=== PATIENT | male | born 1985 | race African-American/Black ===

== ENCOUNTER 2021-05-30 13:36 | Emergency (ER) | payer SELFPAY ==
[2021-05-30 15:31] LABS: Absolute Lymphocytes (CBC) 2.4 K/uL (0.7-4.9); Basophils % 0.5 % (0-1.3); Hematocrit 43.4 % (39.6-49.0); MPV 9.7 fL (7.6-11.3); Protime INR 0.97; RBC Red Blood Cell Count 4.72 M/uL (4.33-5.43)
[2021-05-30 15:49] LABS: ALT/SGPT 45 U/L (12-78); AST/SGOT 25 U/L (15-37); Albumin 4.1 g/dL (3.4-5.0); Alkaline Phosphatase 111 U/L (45-117); BUN Blood Urea Nitrogen 12 mg/dL (7-18); Bicarbonate 29 mmol/L (21-32); Bilirubin Direct < 0.1 mg/dL (0-0.2); Bilirubin Total 0.3 mg/dL (0.2-1.0); Glucose Level 109 mg/dL (74-106); Magnesium 2.2 mg/dL (1.8-2.4); NT PRO-BNP 16 pg/mL (<125); Potassium 4.2 mmol/L (3.5-5.1); Protein, Total 8.1 g/dL (6.4-8.2); Sodium Level 138 mmol/L (136-145); Troponin (Emerg Dept Use Only) < 0.02 ng/mL (0.0-0.045)
--- NOTE | 2021-05-30 16:07 | EDPHYS ---
Physician Documentation [facility] Name: Obi Shi Age: 35 yrs Sex: Male : 1985 Arrival Date: 05/30/2021 Time: 13:42 Bed 23 Private MD: ED Physician Shakeel Francis HPI: 05/30 17:05 This 35 yrs old Black Male presents to ER via Ambulatory with complaints of Chest Pain. kdr 17:05 The patient or guardian reports chest pain that is located primarily in the substernal kdr area, anterior chest wall. The pain does not radiate. Associated signs and symptoms: Pertinent positives: None. Pertinent negatives: abdominal pain, diaphoresis, headache, lightheadedness, nausea, near syncope, palpitations, shortness of breath. The chest pain is described as aching, dull. Duration: The patient or guardian reports multiple episodes, that are intermittent, that wax and wane, with no pattern. Modifying factors: The symptoms are alleviated by nothing. the symptoms are aggravated by nothing. Severity of pain: At its worst the pain was mild in the emergency department the pain is unchanged. The patient has not experienced similar symptoms in the past. The patient has not recently seen a physician. Historical: - Allergies: 13:50 No Known Allergies; ll1 - PMHx: 13:50 None; ll1 - PSHx: 13:50 None; ll1 - Immunization history:: Flu vaccine is not up to date. - Social history:: Smoking status: Reported history of juuling and/or vaping. Patient denies any tobacco usage or history of. ROS: 17:05 Constitutional: Negative for fever, chills, and weight loss, Eyes: Negative for injury, kdr pain, redness, and discharge, ENT: Negative for injury, pain, and discharge, Neck: Negative for injury, pain, and swelling, Respiratory: Negative for shortness of breath, cough, wheezing, and pleuritic chest pain, Abdomen/GI: Negative for abdominal pain, nausea, vomiting, diarrhea, and constipation, Back: Negative for injury and pain, : Negative for injury, bleeding, discharge, and swelling, MS/Extremity: Negative for injury and deformity, Skin: Negative for injury, rash, and discoloration, Neuro: Negative for headache, weakness, numbness, tingling, and seizure activity. Psych: Negative for depression, anxiety, suicide ideation, homicidal ideation, and hallucinations, Allergy/Immunology: Negative for hives, rash, and allergies, Endocrine: Negative for neck swelling, polydipsia, polyuria, polyphagia, and marked weight changes, Hematologic/Lymphatic: Negative for swollen nodes, abnormal bleeding, and unusual bruising. 17:05 Cardiovascular: Positive for chest pain, Negative for edema, orthopnea, palpitations, paroxysmal nocturnal dyspnea, acute changes. Exam: 15:04 ECG was reviewed by the Attending Physician. kdr 17:05 Constitutional: This is a well developed, well nourished patient who is awake, alert, kdr and in no acute distress. Head/Face: Normocephalic, atraumatic. Eyes: Pupils equal round and reactive to light, extra-ocular motions intact. Lids and lashes normal. Conjunctiva and sclera are non-icteric and not injected. Cornea within normal limits. Periorbital areas with no swelling, redness, or edema. Neck: Trachea midline, no thyromegaly or masses palpated, and no cervical lymphadenopathy. Supple, full range of motion without nuchal rigidity, or vertebral point tenderness. No Meningismus. Chest/axilla: Normal chest wall appearance and motion. Nontender with no deformity. No lesions are appreciated. Cardiovascular: Regular rate and rhythm with a normal S1 and S2. No gallops, murmurs, or rubs. Normal PMI, no JVD. No pulse deficits. Respiratory: Lungs have equal breath sounds bilaterally, clear to auscultation and percussion. No rales, rhonchi or wheezes noted. No increased work of breathing, no retractions or nasal flaring. Abdomen/GI: Soft, non-tender, with normal bowel sounds. No distension or tympany. No guarding or rebound. No evidence of tenderness throughout. Back: No spinal tenderness. No costovertebral tenderness. Full range of motion. Skin: Warm, dry with normal turgor. Normal color with no rashes, no lesions, and no evidence of cellulitis. MS/ Extremity: Pulses equal, no cyanosis. Neurovascular intact. Full, normal range of motion. Neuro: Awake and alert, GCS 15, oriented to person, place, time, and situation. Cranial nerves II-XII grossly intact. Motor strength 5/5 in all extremities. Sensory grossly intact. Cerebellar exam normal. Normal gait. Psych: Awake, alert, with orientation to person, place and time. Behavior, mood, and affect are within normal limits. Vital Signs: 13:50 Pulse 70; Resp 18; Temp 97.4; Pulse Ox 99% ; Weight 117.93 kg; Height 5 ft. 10 in. ll1 (177.80 cm); Pain 2/10; 13:50 BP 148 / 72; ll1 15:31 BP 124 / 73; Pulse 68; Resp 18 S; Pulse Ox 98% on R/A; ca1 16:32 BP 111 / 66; Pulse 67; Resp 16 S; Pulse Ox 100% on R/A; ca1 13:50 Body Mass Index 37.31 (117.93 kg, 177.80 cm) ll1 MDM: 16:06 Patient medically screened. kdr 17:05 Data reviewed: vital signs, nurses notes, lab test result(s), EKG, radiologic studies. kdr Counseling: I had a detailed discussion with the patient and/or guardian regarding: the historical points, exam findings, and any diagnostic results supporting the discharge/admit diagnosis, lab results, radiology results, the need for outpatient follow up. 05/30 15:04 Order name: Basic Metabolic Panel; Complete Time: 16:04 [facility] 05/30 15:04 Order name: CBC with Diff; Complete Time: 16:04 [facility] 05/30 15:04 Order name: LFT's; Complete Time: 16:04 [facility] 05/30 15:04 Order name: Magnesium; Complete Time: 16:04 [facility] 05/30 15:04 Order name: NT PRO-BNP; Complete Time: 16:04 [facility] 05/30 15:04 Order name: PT-INR; Complete Time: 16:04 [facility] 05/30 13:59 Order name: EKG; Complete Time: 14:00 1 05/30 13:59 Order name: EKG - Nurse/Tech; Complete Time: 13:59 [facility] 05/30 15:04 Order name: Troponin (emerg Dept Use Only); Complete Time: 16:04 [facility] 05/30 15:04 Order name: XRAY Chest (1 view) [facility] 05/30 15:04 Order name: Cardiac monitoring; Complete Time: 15:24 [facility] 05/30 15:04 Order name: IV Saline Lock; Complete Time: 15:24 [facility] 05/30 15:04 Order name: Labs collected and sent; Complete Time: 15:24 kdr 05/30 15:04 Order name: O2 Per Protocol; Complete Time: 15:24 kdr 05/30 15:04 Order name: O2 Sat Monitoring; Complete Time: 15:24 kdr EC:04 Rate is 67 beats/min. Rhythm is regular, Sinus Rhythm with No ectopy. QRS [place] is kdr Normal. SC interval is normal. QRS interval is normal. Clinical impression: NSR w/ Non-specific ST/T Changes. Administered Medications: No medications were administered Disposition Summary: 05/30/21 16:06 Discharge Ordered Location: Home kdr Problem: an acute exacerbation kdr Symptoms: are resolved kdr Condition: Stable kdr Diagnosis - Palpitations kdr - Chest pain, unspecified kdr Followup: kdr - With: Private Physician - When: 2 - 3 days - Reason: If symptoms return, Further diagnostic work-up, Recheck today's complaints, Continuance of care, Re-evaluation by your physician Discharge Instructions: - Discharge Summary Sheet kdr - Nonspecific Chest Pain, Adult, [id number] kdr - Palpitations, [id number] kdr Forms: - Medication Reconciliation Form kdr - Thank You Letter kdr Signatures: Dispatcher [employer] Shakeel Zamora MD MD kdr Abel Russell RN RN ll1
--- NOTE | 2021-05-30 16:07 | ER ---
Nurse's Notes [facility] Name: Obi Shi Age: 35 yrs Sex: Male : 1985 Arrival Date: 05/30/2021 Time: 13:42 Bed 23 Private MD: Diagnosis: Palpitations;Chest pain, unspecified Presentation: 05/30 13:50 Chief complaint: Patient states: Chest pain off/on for 2 days. Slightly jittery, feels ll1 like it may be anxiety. Coronavirus screen: Client denies travel out of the [place] in the last 14 days. At this time, the client does not indicate any symptoms associated with coronavirus-19. Ebola Screen: Patient denies travel to an Ebola-affected area in the 21 days before illness onset. Initial Sepsis Screen: Does the patient meet any 2 criteria? No. Patient's initial sepsis screen is negative. Does the patient have a suspected source of infection? No. Patient's initial sepsis screen is negative. Risk Assessment: Do you want to hurt yourself or someone else? Patient reports no desire to harm self or others. Onset of symptoms was May 29, 2021. 13:50 Method Of Arrival: Ambulatory ll1 13:50 Acuity: GILMAR 3 ll1 Historical: - Allergies: 13:50 No Known Allergies; ll1 - PMHx: 13:50 None; ll1 - PSHx: 13:50 None; ll1 - Immunization history:: Flu vaccine is not up to date. - Social history:: Smoking status: Reported history of juuling and/or vaping. Patient denies any tobacco usage or history of. Screenin:00 Abuse screen: Denies threats or abuse. Denies injuries from another. Nutritional ca1 screening: No deficits noted. Tuberculosis screening: No symptoms or risk factors identified. Fall Risk IV access (20 points). Assessment: 15:00 General: Appears in no apparent distress. comfortable, Behavior is calm, cooperative, ca1 appropriate for age. Pain: Complains of pain in chest Pain radiates to right arm and left arm Pain currently is 0 out of 10 on a pain scale. at worst was 3 out of 10 on a pain scale. Quality of pain is described as sharp, Pain began 2-3 days ago. Is intermittent, Aggravated by repositioning. Neuro: Level of Consciousness is awake, alert, obeys commands, Oriented to person, place, time, situation. Cardiovascular: Heart tones S1 S2 present Capillary refill < 3 seconds Patient's skin is warm and dry. Rhythm is sinus rhythm. Respiratory: Airway is patent Respiratory effort is even, unlabored, Respiratory pattern is regular, symmetrical, Breath sounds are clear bilaterally. GI: Abdomen is round non-distended, Bowel sounds present X 4 quads. Abd is soft and non tender X 4 quads. : No signs and/or symptoms were reported regarding the genitourinary system. EENT: No signs and/or symptoms were reported regarding the EENT system. Derm: Skin is intact, is healthy with good turgor, Skin is pink, warm \T\ dry. Musculoskeletal: Circulation, motion, and sensation intact. Capillary refill < 3 seconds. 16:32 Reassessment: Patient appears in no apparent distress at this time. Patient and/or ca1 family updated on plan of care and expected duration. Pain level reassessed. Patient is alert, oriented x 3, equal unlabored respirations, skin warm/dry/pink. Vital Signs: 13:50 Pulse 70; Resp 18; Temp 97.4; Pulse Ox 99% ; Weight 117.93 kg; Height 5 ft. 10 in. ll1 (177.80 cm); Pain 2/10; 13:50 BP 148 / 72; ll1 15:31 BP 124 / 73; Pulse 68; Resp 18 S; Pulse Ox 98% on R/A; ca1 16:32 BP 111 / 66; Pulse 67; Resp 16 S; Pulse Ox 100% on R/A; ca1 13:50 Body Mass Index 37.31 (117.93 kg, 177.80 cm) ll1 ED Course: 13:42 Patient arrived in ED. ds1 13:49 Arm band placed on. ll1 13:52 Triage completed. ll1 13:59 EKG completed in triage. Results shown to MD. ll1 14:34 Shakeel Francis MD is Attending Physician. kdr 14:53 Patient placed in an exam room, on a stretcher. ll1 15:00 Patient has correct armband on for positive identification. Placed in gown. Bed in low ca1 position. Call light in reach. Side rails up X2. monitoring coordinator on. Pulse ox on. NIBP on. Warm blanket given. 15:10 Haven Contreras, RN is Primary Nurse. ca1 15:23 Assist provider with bone marrow aspiration. Initial lab(s) drawn, by me, sent to lab. ca1 Inserted saline lock: 20 gauge in right antecubital area, using aseptic technique. Blood collected. Patient maintains SpO2 saturation greater than 95% on room air. 15:33 XRAY Chest (1 view) In Process Unspecified. EDMS 16:41 IV discontinued, intact, bleeding controlled, No redness/swelling at site. Pressure ca1 dressing applied. Administered Medications: No medications were administered Outcome: 16:06 Discharge ordered by . kdr 16:41 Discharged to home ambulatory. ca1 16:41 Condition: stable 16:41 Discharge instructions given to patient, Instructed on discharge instructions, follow up and referral plans. Demonstrated understanding of instructions, follow-up care. 16:42 Patient left the ED. ca1 Signatures: Dispatcher [employer] EDPA Shakeel Francis MD MD kdr Sanford, Demi ds1 Haven Contreras RN RN ca1 Abel Russell RN RN ll1
--- NOTE | 2021-05-30 16:13 | RAD REPORT ---
EXAM DESCRIPTION: Jose Single View05/30/2021 3:34 pm CLINICAL HISTORY: Chest pain COMPARISON: 2008 FINDINGS: The lungs appear clear of acute infiltrate. The heart is normal size IMPRESSION: No acute abnormalities displayed
[2021-05-30 16:50] VITALS: TEMP 97.4
[2021-05-30 16:53] VITALS: BP 111/66; O2SAT 100
--- NOTE | 2021-05-31 08:05 | EKG ---
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
== END 2021-05-30 16:42 | disposition home or self-care (01) ==
LOC: ER 13:36
DX: R00.2 Palpitations (principal)
CPT/HCPCS: 36415; 71045; 80048; 80076; 83735; 83880; 84484; 85025; 85610; 93005; 99285

== ENCOUNTER 2022-05-15 16:02 | Emergency (ER) | payer SELFPAY ==
--- NOTE | 2022-05-15 18:20 | ER ---
Nurse's Notes [facility] Name: Obi Shi Age: 36 yrs Sex: Male : 1985 Arrival Date: 05/15/2022 Time: 16:05 Bed Waiting Private MD: Diagnosis: SARS-associated coronavirus as the cause of diseases classified elsewhere Presentation: 05/15 16:14 Chief complaint: Patient states: nasal congestion, dry cough and runny nose x 3 days. ss Pt states, "with flu and all that my job wants me to get cleared to go back to work." Denies fever. Coronavirus screen: Client denies travel out of the [place] in the last 14 days. Ebola Screen: Patient denies exposure to infectious person. Patient denies travel to an Ebola-affected area in the 21 days before illness onset. Initial Sepsis Screen: Does the patient meet any 2 criteria? No. Patient's initial sepsis screen is negative. Does the patient have a suspected source of infection? No. Patient's initial sepsis screen is negative. Risk Assessment: Do you want to hurt yourself or someone else? Patient reports no desire to harm self or others. Onset of symptoms was May 11, 2022. 16:14 Method Of Arrival: Ambulatory ss 16:14 Acuity: GILMAR 4 ss Historical: - Allergies: 16:15 No Known Allergies; ss - Home Meds: 16:15 None [Active]; ss - PMHx: 16:15 None; ss - PSHx: 16:15 None; ss - Immunization history:: Client reports receiving the 2nd dose of the Covid vaccine. - Social history:: Smoking status: Reported history of juuling and/or vaping. Screenin:13 Abuse screen: Denies threats or abuse. Denies injuries from another. Nutritional ss screening: No deficits noted. Tuberculosis screening: Never had TB. Fall Risk None identified. Assessment: 18:13 General: Appears in no apparent distress. comfortable, Behavior is calm, cooperative, ss Reports feeling ill for 2-3 days, Denies fever, fatigue, chills. Pain: Denies pain. Neuro: Level of Consciousness is awake, alert, obeys commands. Respiratory: Respiratory effort is even, unlabored, Respiratory pattern is regular, symmetrical. GI: No signs and/or symptoms were reported involving the gastrointestinal system. Derm: Skin is intact, is healthy with good turgor, Skin is dry, Skin is pink, warm \\T\\ dry. normal. Vital Signs: 16:14 BP 151 / 79; Pulse 68; Resp 16; Temp 98.5(TE); Pulse Ox 98% on R/A; Weight 122.47 kg; ss Height 5 ft. 10 in. (177.80 cm); Pain 0/10; 16:14 Body Mass Index 38.74 (122.47 kg, 177.80 cm) ss ED Course: 16:05 Patient arrived in ED. mr 16:15 Triage completed. ss 16:15 Arm band placed on left wrist. ss 16:23 Brooks Roche PA is PHCP. cp 16:23 Kush Oconnor MD is Attending Physician. cp 18:13 Nidhi Morejon, RN is Primary Nurse. ss 18:13 Patient has correct armband on for positive identification. Bed in low position. Call ss light in reach. 18:13 No provider procedures requiring assistance completed. Patient did not have IV access ss during this emergency room visit. Administered Medications: No medications were administered Medication: 18:13 VIS not applicable for this client. ss Outcome: 18:19 Discharge ordered by . cp 18:24 Discharged to home ambulatory. ss 18:24 Condition: good 18:24 Discharge instructions given to patient, Instructed on discharge instructions, follow up and referral plans. Demonstrated understanding of instructions, follow-up care, Prescriptions given X 18:25 Patient left the ED. ss Signatures: Kasey Martini mr Nidhi Morejon, RN RN Brooks Roche PA PA cp
--- NOTE | 2022-05-15 18:20 | EDPHYS ---
Physician Documentation [facility] Name: Obi Shi Age: 36 yrs Sex: Male : 1985 Arrival Date: 05/15/2022 Time: 16:05 Bed Waiting Private MD: ED Physician Kush Oconnor HPI: 05/15 18:00 This 36 yrs old Black Male presents to ER via Ambulatory with complaints of Sinus cp Congestion. 18:00 The patient or guardian reports cough, that is intermittent, runny nose. cp 18:00 Onset: The symptoms/episode began/occurred 3-4 days ago. Severity of symptoms: in the emergency department the symptoms have improved, moderately. Associated signs and symptoms: Pertinent positives: rhinorrhea, Pertinent negatives: diarrhea, ear ache, fever, sore throat, vomiting. Patient reports employer requesting COVID-19 test. Historical: - Allergies: 16:15 No Known Allergies; ss - Home Meds: 16:15 None [Active]; ss - PMHx: 16:15 None; ss - PSHx: 16:15 None; ss - Immunization history:: Client reports receiving the 2nd dose of the Covid vaccine. - Social history:: Smoking status: Reported history of juuling and/or vaping. ROS: 18:05 Constitutional: Negative for body aches, fever, poor PO intake. cp 18:05 Eyes: Negative for injury, pain, redness, and discharge. cp 18:05 ENT: Positive for rhinorrhea, Negative for drainage from ear(s), ear pain, sore throat, difficulty swallowing, difficulty handling secretions. 18:05 Respiratory: Positive for cough, Negative for shortness of breath, wheezing. 18:05 Abdomen/GI: Negative for abdominal pain, vomiting, diarrhea, constipation. 18:05 Neuro: Negative for altered mental status, headache, weakness. 18:05 All other systems are negative. Exam: 18:10 Constitutional: The patient appears in no acute distress, alert, awake, non-toxic, well cp developed, well nourished, obese. 18:10 Head/Face: Normocephalic, atraumatic. cp 18:10 Eyes: Periorbital structures: appear normal, Conjunctiva: normal, no exudate, no injection, Sclera: no appreciated abnormality, Lids and lashes: appear normal, bilaterally. 18:10 ENT: External ear(s): are unremarkable, Nose: is normal, Mouth: Lips: moist, Oral mucosa: pink and intact, moist, Posterior pharynx: Airway: no evidence of obstruction, patent, Tonsils: are normal in appearance, swelling, is not appreciated, erythema, is not appreciated, exudate, is not appreciated. 18:10 Neck: ROM/movement: is normal, is supple, without pain, no range of motions limitations, no meningismus. 18:10 Chest/axilla: Inspection: normal. 18:10 Cardiovascular: Rate: normal. 18:10 Respiratory: the patient does not display signs of respiratory distress, Respirations: normal, no use of accessory muscles, no retractions, labored breathing, is not present, Breath sounds: are clear throughout, no decreased breath sounds, no stridor, no wheezing. 18:10 Abdomen/GI: Exam negative for discomfort, distension, guarding, Inspection: abdomen appears normal. Vital Signs: 16:14 BP 151 / 79; Pulse 68; Resp 16; Temp 98.5(TE); Pulse Ox 98% on R/A; Weight 122.47 kg; ss Height 5 ft. 10 in. (177.80 cm); Pain 0/10; 16:14 Body Mass Index 38.74 (122.47 kg, 177.80 cm) ss MDM: 18:10 Differential Diagnosis: Bronchitis Influenza Upper Respiratory Infection Viral Syndrome cp Pneumonia Other COVID-19. 18:19 Patient medically screened. cp 18:19 Data reviewed: vital signs, nurses notes, lab test result(s). cp 18:19 Counseling: I had a detailed discussion with the patient and/or guardian regarding: the cp historical points, exam findings, and any diagnostic results supporting the discharge/admit diagnosis, lab results, to return to the emergency department if symptoms worsen or persist or if there are any questions or concerns that arise at home. 05/15 16:17 Order name: Flu; Complete Time: 18:07 ss 05/15 16:17 Order name: COVID-19 SARS RT PCR (Document "Date of Onset" if Symptomatic); Complete ss Time: 18:07 06 18:08 Interpretation: Reviewed. cp Administered Medications: No medications were administered Disposition Summary: 05/15/22 18:19 Discharge Ordered Location: Home cp Problem: new cp Symptoms: are unchanged cp Condition: Stable cp Diagnosis - SARS-associated coronavirus as the cause of diseases classified elsewhere cp Followup: cp - With: Private Physician - When: 2 - 3 days - Reason: Worsening of condition Discharge Instructions: - Discharge Summary Sheet cp - Aspirin and Your Heart cp - Form - Excuse from Work, School, or Physical Activity cp - COVID-19 cp - Things to Know about the COVID-19 Pandemic - [facility] cp - 10 Things You Can Do to Manage Your COVID-19 Symptoms at Home - [facility] cp - COVID-19: Quarantine vs. Isolation - [facility] cp - Prevent the Spread of COVID-19 if You Are Sick - [facility] cp Forms: - Medication Reconciliation Form cp - Thank You Letter cp - Antibiotic Education cp - Prescription Opioid Use cp Addendum: 05/17/2022 07:12 Co-signature as Attending Physician, Kush Oconnor MD. r n Signatures: Dispatcher [employer] Kush Green MD MD rn Smirch, Shelby, RN RN ss Page, Corey, PA PA cp
[2022-05-15 18:29] VITALS: BP 151/79; TEMP 98.5; O2SAT 98
== END 2022-05-15 18:25 | disposition home or self-care (01) ==
LOC: ER 16:02
DX: U07.1 COVID-19 (principal)
CPT/HCPCS: 87804; 99282; U0003

== ENCOUNTER 2023-10-19 14:18 | Emergency (ER) | payer SELFPAY ==
[2023-10-19 16:22] LABS: Absolute Lymphocytes (CBC) 1.9 K/uL (0.7-4.9); Hematocrit 45.6 % (39.6-49.0); Lymphocytes % 30.9 % (15.3-44.8); MCV 94.2 fL (80-100); MPV 9.1 fL (7.6-11.3); Platelets 211 thou/uL (152-406); RBC Red Blood Cell Count 4.84 M/uL (4.33-5.43)
[2023-10-19 16:40] LABS: Protime INR 0.99
[2023-10-19 16:47] LABS: Potassium 4.4 mEq/L (3.5-5.1); Troponin High Sensitivity 5.3 pg/mL (<58.9)
--- NOTE | 2023-10-19 17:38 | RAD REPORT ---
[facility]36 [facility] CLINICAL HISTORY: CHEST PAIN COMPARISON: Chest Single View dated 05/30/2021; CHEST SINGLE VIEW dated 01/04/2009 TECHNIQUE: Portable AP view of the chest. FINDINGS: The lungs are clear. No pneumothorax or effusion. The cardiomediastinal contours are unre markable. IMPRESSION: No acute cardiopulmonary process.
--- NOTE | 2023-10-19 17:55 | EDPHYS ---
Physician Documentation [facility] Name: Obi Shi Age: 37 yrs Sex: Male : 1985 Arrival Date: 10/19/2023 Time: 14:18 Bed DX5 Private MD: ED Physician Brooks Shannon HPI: 10/19 15:30 This 37 yrs old Black Male presents to ER via Ambulatory with complaints of Chest Pain. cp 15:30 The patient or guardian reports chest pain that is located primarily in the anterior cp chest wall, bilaterally. The pain does not radiate. 15:30 Associated signs and symptoms: Pertinent positives: shortness of breath. The chest pain cp is described as tightness. Duration: The patient or guardian reports a single episode, that is still ongoing, and unchanged. Severity of pain: in the emergency department the pain is unchanged despite home interventions. Historical: - Allergies: 14:27 No Known Allergies; db - PMHx: 14:27 None; db - PSHx: 14:27 None; db - Immunization history:: Adult Immunizations unknown. - Social history:: Smoking status: Reported history of juuling and/or vaping. ROS: 15:35 Cardiovascular: Positive for chest pain, Negative for edema, palpitations, cp 15:35 Eyes: Negative for injury, pain, redness, and discharge, cp 15:35 Constitutional: Negative for body aches, chills, fever, poor PO intake, 15:35 ENT: Negative for drainage from ear(s), ear pain, sore throat, difficulty swallowing, difficulty handling secretions, 15:35 Respiratory: Positive for shortness of breath, Negative for wheezing, 15:35 Abdomen/GI: Negative for abdominal pain, nausea, vomiting, and diarrhea, 15:35 Back: Negative for radiated pain, 15:35 Skin: Negative for cellulitis, rash, 15:35 Neuro: Negative for altered mental status, dizziness, headache, syncope, weakness, 15:35 All other systems are negative, Exam: 15:40 Constitutional: The patient appears in no acute distress, alert, awake, comfortable, cp non-diaphoretic, non-toxic, well developed, well nourished, 15:40 Head/Face: Normocephalic, atraumatic. cp 15:40 Eyes: Periorbital structures: appear normal, Conjunctiva: normal, no exudate, no injection, Sclera: no appreciated abnormality, Lids and lashes: appear normal, bilaterally, 15:40 ENT: External ear(s): are unremarkable, Nose: is normal, Mouth: Lips: moist, Oral mucosa: pink and intact, moist, Posterior pharynx: Airway: no evidence of obstruction, patent, 15:40 Neck: ROM/movement: is normal, is supple, without pain, no range of motions limitations, 15:40 Chest/axilla: Inspection: normal, Palpation: is normal, no crepitus, no tenderness, 15:40 Cardiovascular: Rate: normal, Rhythm: regular, Edema: is not appreciated, JVD: is not appreciated, 15:40 Respiratory: the patient does not display signs of respiratory distress, Respirations: normal, no use of accessory muscles, no retractions, labored breathing, is not present, Breath sounds: are clear throughout, no decreased breath sounds, no stridor, no wheezing, 15:40 Abdomen/GI: Exam negative for discomfort, distension, guarding, Inspection: abdomen appears normal, 15:40 Back: pain, is absent, ROM is normal, 15:40 Neuro: Orientation: to person, place \T\ time. Mentation: is normal, Gait: is steady, at a normal pace, without difficulty, Vital Signs: 14:25 BP 139 / 94; Pulse 64; Resp 18 S; Temp 98.4; Pulse Ox 99% ; Weight 124.74 kg; Height 5 db ft. 10 in. ; Pain 1/10; 17:20 BP 146 / 91; Pulse 61; Resp 20; Pulse Ox 95% ; Pain 0/10; kb3 18:30 BP 130 / 78; Pulse 78; Resp 20; Pulse Ox 100% ; kb3 14:25 Body Mass Index 39.46 (124.74 kg, 177.8 cm) db 14:25 Pain Scale: Adult db 17:20 Pain Scale: Adult kb3 MDM: 15:05 Patient medically screened. 10/19 15:25 Order name: Basic Metabolic Panel; Complete Time: 17: 10/19 17:26 Interpretation: Normal except: GFR 81. 10/19 15:25 Order name: CBC with Diff; Complete Time: 17: cp 10/19 17: Interpretation: Reviewed. 10/19 15:25 Order name: D-Dimer; Complete Time: 17:26 cp 10/19 17:26 Interpretation: Reviewed. 10/19 15:25 Order name: Magnesium; Complete Time: 17:26 cp 10/19 15:25 Order name: NT PRO-BNP; Complete Time: 17:26 cp 10/19 15:25 Order name: PT-INR; Complete Time: 17:26 cp 10/19 15:25 Order name: Troponin HS; Complete Time: 17:26 cp 10/19 17:26 Interpretation: Reviewed. 10/19 15:25 Order name: XRAY Chest (1 view); Complete Time: 17:49 cp 10/19 17:49 Interpretation: Report review. 10/19 15:25 Order name: EKG; Complete Time: 15:25 cp 10/19 15:25 Order name: Cardiac monitoring 10/19 15:25 Order name: EKG - Nurse/Tech; Complete Time: 17:20 10/19 15:25 Order name: IV Saline Lock; Complete Time: 16:02 10/19 15:25 Order name: Labs collected and sent; Complete Time: 16:02 10/19 15:25 Order name: O2 Per Protocol 10/19 15:25 Order name: O2 Sat Monitoring cp Administered Medications: 17:54 CANCELLED (Physician Discretion): [id number] mg IVP once cp 18:05 Drug: MethylPrednisoLONE IVP 125 mg IVP once Route: IVP; Site: left antecubital; kb3 Disposition Summary: 10/19/23 17:55 Discharge Ordered Notes: Location: Home cp Problem: new cp Symptoms: have improved cp Condition: Stable cp Diagnosis - Chest pain, unspecified cp - Shortness of breath cp Followup: cp - With: Private Physician - When: 2 - 3 days - Reason: Recheck today's complaints Discharge Instructions: - Discharge Summary Sheet cp - Nonspecific Chest Pain, Adult cp - Shortness of Breath, Adult cp - Aspirin and Your Heart cp Forms: - Medication Reconciliation Form cp - Thank You Letter cp - Antibiotic Education cp - Prescription Opioid Use cp - Patient Portal Instructions cp - Leadership Thank You Letter cp Prescriptions: - albuterol sulfate 90 mcg/actuation Inhalation HFA Aerosol Inhaler - inhale 1 inhalation INHALATION route every 4 to 6 hours as needed for cp bronchospasm; administer via ventilator; 1 unit; Refills: 0, Product Selection Permitted - Medrol (Dwayne) 4 mg Oral Tablets, Dose Pack - take 1 tablet ORAL route as directed - follow package instructions; 1 packet; cp Refills: 0, Product Selection Permitted Signatures: Dispatcher [employer] EDBrooks Stark PA PA cp Charlene Morgan, RN RN kb3 Ana Almonte RN RN db Corrections: (The following items were deleted from the chart) 17:54 17:27 Ketorolac IVP 15 mg IVP once ordered. cp cp
--- NOTE | 2023-10-19 17:55 | ER ---
Nurse's Notes [facility] Name: Obi Shi Age: 37 yrs Sex: Male : 1985 Arrival Date: 10/19/2023 Time: 14:18 Bed DX5 Private MD: Diagnosis: Chest pain, unspecified;Shortness of breath Presentation: 10/19 14:25 Chief complaint: Patient states: CHEST PAIN WITH SOB STARTED 3 DAYS AGO. STATES COMES db AND GOES WITH TIGHTNESS. Coronavirus screen:. Coronavirus screen: Vaccine status: Patient reports receiving the 2nd dose of the covid vaccine. Client denies travel out of the [place] in the last 14 days. At this time, the client does not indicate any symptoms associated with coronavirus-19. Ebola Screen: Patient negative for fever greater than or equal to 101.5 degrees Fahrenheit, and additional compatible Ebola Virus Disease symptoms Patient denies exposure to infectious person. Patient denies travel to an Ebola-affected area in the 21 days before illness onset. No symptoms or risks identified at this time. Initial Sepsis Screen: Does the patient meet any 2 criteria? No. Patient's initial sepsis screen is negative. Does the patient have a suspected source of infection? No. Patient's initial sepsis screen is negative. Risk Assessment: Do you want to hurt yourself or someone else? Patient reports no desire to harm self or others. Onset of symptoms was October 19, 2023. 14:25 Method Of Arrival: Ambulatory db 14:25 Acuity: GILMAR 2 db Triage Assessment: 14:27 General: Appears in no apparent distress. comfortable, Behavior is calm, cooperative. db Pain: Complains of pain in chest. Neuro: Level of Consciousness is awake, alert, obeys commands, Oriented to person, place, time, situation. Cardiovascular: Reports chest pain, Capillary refill < 3 seconds Patient's skin is warm and dry. Chest pain quality is TIGHTNESS. Historical: - Allergies: 14:27 No Known Allergies; db - PMHx: 14:27 None; db - PSHx: 14:27 None; db - Immunization history:: Adult Immunizations unknown. - Social history:: Smoking status: Reported history of juuling and/or vaping. Screenin:00 [facility] ED Fall Risk Assessment (Adult) History of falling in the last 3 months, kb3 including since admission No falls in past 3 months (0 pts) Confusion or Disorientation No (0 pts) Intoxicated or Sedated No (0 pts) Impaired Gait No (0 pts) Mobility Assist Device Used No (0 pt) Altered Elimination No (0 pt) Score/Fall Risk Level 0 - 2 = Low Risk Oriented to surroundings. Abuse screen: Denies threats or abuse. Denies injuries from another. Nutritional screening: No deficits noted. Tuberculosis screening: No symptoms or risk factors identified. Assessment: 17:00 General: Appears in no apparent distress. comfortable, Behavior is calm, cooperative. kb3 17:00 Pain: Denies pain. kb3 Vital Signs: 14:25 BP 139 / 94; Pulse 64; Resp 18 S; Temp 98.4; Pulse Ox 99% ; Weight 124.74 kg; Height 5 db ft. 10 in. ; Pain 1/10; 17:20 BP 146 / 91; Pulse 61; Resp 20; Pulse Ox 95% ; Pain 0/10; kb3 18:30 BP 130 / 78; Pulse 78; Resp 20; Pulse Ox 100% ; kb3 14:25 Body Mass Index 39.46 (124.74 kg, 177.8 cm) db 14:25 Pain Scale: Adult db 17:20 Pain Scale: Adult kb3 ED Course: 14:21 Patient arrived in ED. mg5 14:27 Triage completed. db 14:27 Arm band placed on. db 15:04 Brooks Roche PA is PHCP. cp 15:04 Brooks Shannon MD is Attending Physician. cp 16:02 Inserted saline lock: 20 gauge in right antecubital area, using aseptic technique. ll1 Blood collected. 16:38 XRAY Chest (1 view) In Process Unspecified. EDMS 17:00 Patient has correct armband on for positive identification. Provided Education on: Plan kb3 of care. 17:00 No provider procedures requiring assistance completed. Patient maintains SpO2 kb3 saturation greater than 95% on room air. 18:32 IV discontinued, intact, bleeding controlled, No redness/swelling at site. Pressure kb3 dressing applied. Administered Medications: 17:54 CANCELLED (Physician Discretion): [id number] mg IVP once cp 18:05 Drug: MethylPrednisoLONE IVP 125 mg IVP once Route: IVP; Site: left antecubital; kb3 Medication: 17:00 VIS not applicable for this client. kb3 Outcome: 17:55 Discharge ordered by MD. barrientos 18:33 Patient left the ED. kb3 Signatures: Dispatcher [employer] EDMS Brooks Roche PA PA cp Lewis, Lynsay RN RN ll1 Charlene Morgan RN RN kb3 Ana Almonte RN RN Loli Washington 5
[2023-10-19] MEDS ORDERED: KETOROLAC 30 MG/ML INJ ONE (18:08)
[2023-10-19] MEDS ORDERED: METHYLPREDNISOLONE 125 MG INJ ONE (18:18)
[2023-10-19 19:15] VITALS: TEMP 98.4
[2023-10-19 19:19] VITALS: BP 130/78; O2SAT 100
== END 2023-10-19 18:33 | disposition home or self-care (01) ==
LOC: ER 14:18
DX: R07.89 Other chest pain (principal); R06.02 Shortness of breath
CPT/HCPCS: 36415; 71045; 80048; 83735; 83880; 84484; 85025; 85379; 85610; 96374; 99284; J2930

== ENCOUNTER → 2023-11-18 | Emergency (ER) | payer SELFPAY ==
[~2023-11-18] MED LIST: ALBUTEROL 2.5 MG/3 ML NEB SOL ONE; DIPHENHYDRAMINE 25 MG TAB/CAP ONE; HYDROCODONE/CHLORPHEN 5 ML/OSYR ONE; IBUPROFEN 400 MG TAB ONE; IPRATROPIUM BROM 0.5MG/2.5ML ONE; predniSONE 20 MG TAB ONE
--- NOTE | 2023-11-18 05:31 | EDPHYS ---
Physician Documentation [facility] Name: Obi Shi Age: 38 yrs Sex: Male : 1985 Arrival Date: 11/18/2023 Time: 02:02 Bed 17 Private MD: ED Physician Noe Alex HPI: 11/18 02:35 This 38 yrs old Black Male presents to ER via Ambulatory with complaints of Congestion, sp4 Shortness Of Breath. 03:22 DC 38-year-old male who presents with congestion and shortness of breath for 1 week sp4 associated with nonproductive cough. Patient took TheraFlu at home. History of childhood asthma. . Historical: - Allergies: 02:25 No Known Allergies; as6 - PMHx: 02:25 None; as6 - PSHx: 02:25 None; as6 - Immunization history:: Adult Immunizations up to date. - Social history:: Smoking status: Patient denies any tobacco usage or history of. - Family history:: not pertinent. - Code Status:: Full code. ROS: 03:22 Constitutional: Negative for fever, chills, and weight loss, that of cough, congestion, sp4 shortness of breath. 03:22 All other systems are negative, Exam: 03:22 Constitutional: This is a well developed, well nourished patient who is awake, alert, sp4 and in no acute distress. Head/Face: Normocephalic, atraumatic. Eyes: Pupils equal round and reactive to light, extra-ocular motions intact. Lids and lashes normal. Conjunctiva and sclera are not injected. Cornea within normal limits. Periorbital areas with no swelling, redness, or edema. ENT: Nares patent. No nasal discharge, no septal abnormalities noted. Tympanic membranes are normal and external auditory canals are clear. Oropharynx with no redness, swelling, or masses, exudates, or evidence of obstruction, uvula midline. Mucous membranes moist. Neck: Trachea midline, no thyromegaly or masses palpated, and no cervical lymphadenopathy. Supple, full range of motion without nuchal rigidity, or vertebral point tenderness. Chest/axilla: Normal chest wall appearance and motion. Nontender with no deformity. No lesions are appreciated. Cardiovascular: Regular rate and rhythm with a normal S1 and S2. No gallops, murmurs, or rubs. Normal PMI, no JVD. No pulse deficits. Respiratory: Lungs have equal breath sounds bilaterally, clear to auscultation and percussion. No rales, rhonchi or wheezes noted. No increased work of breathing, no retractions or nasal flaring. Abdomen/GI: Soft, non-tender, with normal bowel sounds. No distension or tympany. No guarding or rebound. No evidence of tenderness throughout. Back: No spinal tenderness. No costovertebral tenderness. Skin: Warm, dry with normal turgor. Normal color with no rashes, no lesions, and no evidence of cellulitis. MS/ Extremity: Pulses equal, no cyanosis. Neurovascular intact. Full, normal range of motion. Neuro: Awake and alert, GCS 15, oriented to person, place, time, and situation. Cranial nerves II-XII grossly intact. Motor strength 5/5 in all extremities. Sensory grossly intact. Psych: Awake, alert, with orientation to person, place and time. Behavior, mood, and affect are within normal limits Vital Signs: 02:21 BP 122 / 89; Pulse 86; Resp 18 S; Temp 98(O); Pulse Ox 95% on R/A; Weight 122.47 kg as6 (R); Height 5 ft. 10 in. (R); Pain 0/10; 03:35 BP 130 / 83; Pulse 70; Resp 20; Pulse Ox 98% ; la4 06:09 BP 138 / 83; Pulse 74; Pulse Ox 94% ; la4 02:21 Body Mass Index 38.74 (122.47 kg, 177.8 cm) as6 02:21 Pain Scale: Adult as6 [place] Coma Score: 03:35 Eye Response: spontaneous(4). Motor Response: obeys commands(6). Verbal Response: la4 oriented(5). Total: 15. 06:09 Eye Response: spontaneous(4). Motor Response: obeys commands(6). Verbal Response: la4 oriented(5). Total: 15. MDM: 02:39 Patient medically screened. sp4 05:28 Differential diagnosis: Anxiety Reaction asthma, Bronchitis CHF exacerbation, sp4 pneumonia. Immunization status:. Data reviewed: vital signs, nurses notes, lab test result(s), Flu: negative. ED course: Patient reports chest congestion, loss of breath, and nonproductive cough for 1 week. Viral swabs today are negative. Stable for discharge home . 11/18 02:36 Order name: Influenza Screen (a \T\ B); Complete Time: 04:16 sp4 11/18 03:33 Order name: Glucose, Ancillary Testing; Complete Time: 04:16 EDMS 11/18 03:49 Order name: SARS-COV-2 RT PCR; Complete Time: 05:24 EDMS 11/18 03:16 Order name: Accucheck Blood Glucose; Complete Time: 03:43 sp4 Administered Medications: 03:38 Drug: Albuterol Inhalation 2.5 mg Inhalation once Route: Inhalation; la4 03:38 Drug: Ipratropium Inhalation Aerosol 0.5 mg Inhalation once Route: Inhalation; la4 03:38 Drug: predniSONE PO 60 mg PO once Route: PO; la4 03:38 Drug: Dextromethorphan-Guaifenesin PO Liquid 10 mg-100 mg/5 mL 10 ml PO once Route: PO; la4 03:38 Drug: Ibuprofen PO 800 mg PO once Route: PO; la4 04:28 Drug: diphenhydrAMINE PO 25 mg PO once Route: PO; nw1 04:49 Not Given (medication not availablee): [id number] mg PO once la4 Disposition Summary: 11/18/23 05:30 Discharge Ordered Notes: Please see bottom finisher for Sleep study on outpatient basis Location: Home sp4 Problem: new sp4 Symptoms: have improved sp4 Condition: Stable sp4 Diagnosis - Nasal congestion sp4 - Acute chest congestion, acute common cold, acute nonproductive cough, acute viral sp4 upper respiratory infection Followup: sp4 - With: Amos Hernandez DO - When: 7 - 10 days - Reason: Recheck today's complaints Discharge Instructions: - Discharge Summary Sheet sp4 - Upper Respiratory Infection, Adult, [id number] sp4 Forms: - Patient Portal Instructions sp4 Prescriptions: - dextromethorphan-guaifenesin 10-200 mg Oral capsule - take 2 capsule ORAL route every 6 hours PRN cough; 60 capsule; Refills: 0, sp4 Product Selection Permitted - Albuterol Sulfate 2.5 mg /3 mL (0.083 %) Inhalation Solution for Nebulization - inhale 1 unit NEBULIZATION route every 4 hours As needed Dispense with sp4 Nebulizer and adult mask, Dispense 50 vials or two boxes , use one vial every 4 hours as needed for cough and congestion; 50 unit; Refills: 0, Product Selection Permitted Signatures: Dispatcher [employer] Filiberto Dan, RN RN as6 Noe Alex MD MD sp4 Mary De La O RN RN la4 Marjorie Lara RN RN nw1 Corrections: (The following items were deleted from the chart) 03:49 02:36 SARS-COV-2 Antigen Rapid+I.LAB.BRZ ordered. EDMS EDMS
--- NOTE | 2023-11-18 05:31 | ER ---
Nurse's Notes [facility] Name: Obi Shi Age: 38 yrs Sex: Male : 1985 Arrival Date: 11/18/2023 Time: 02:02 Bed 17 Private MD: Diagnosis: Nasal congestion;Acute chest congestion, acute common cold, acute nonproductive cough, acute viral upper respiratory infection Presentation: 11/18 02:21 Chief complaint: Patient states: difficulty breathing, dizziness chest congestion x1 as6 week. Coronavirus screen: At this time, the client does not indicate any symptoms associated with coronavirus-19. Ebola Screen: No symptoms or risks identified at this time. Initial Sepsis Screen: Does the patient meet any 2 criteria? No. Patient's initial sepsis screen is negative. Does the patient have a suspected source of infection? No. Patient's initial sepsis screen is negative. Risk Assessment: Do you want to hurt yourself or someone else? Patient reports no desire to harm self or others. Onset of symptoms was November 11, 2023. 02:21 Method Of Arrival: Ambulatory as6 02:21 Acuity: GILMAR 3 as6 Historical: - Allergies: 02:25 No Known Allergies; as6 - PMHx: 02:25 None; as6 - PSHx: 02:25 None; as6 - Immunization history:: Adult Immunizations up to date. - Social history:: Smoking status: Patient denies any tobacco usage or history of. - Family history:: not pertinent. - Code Status:: Full code. Screenin:35 [facility] ED Fall Risk Assessment (Adult) History of falling in the last 3 months, la4 including since admission No falls in past 3 months (0 pts) Confusion or Disorientation No (0 pts) Intoxicated or Sedated No (0 pts) Impaired Gait No (0 pts) Mobility Assist Device Used No (0 pt) Altered Elimination No (0 pt) Score/Fall Risk Level 0 - 2 = Low Risk Oriented to surroundings, Hourly rounding (assess needs \T\ fall precautionary measures) done. Abuse screen: Denies threats or abuse. Denies injuries from another. Nutritional screening: No deficits noted. Tuberculosis screening: No symptoms or risk factors identified. Assessment: 03:39 Reassessment: no report given. Pt found in room with orders for medications and labs la4 pending. Pt in no apparent distress. Care assumed at this time. General: Appears in no apparent distress. Behavior is calm, cooperative, appropriate for age. Pain:. Neuro: Bach Agitation-Sedation Scale (RASS): 0 - Alert and Calm Level of Consciousness is awake, alert, obeys commands, Oriented to person, place, time, situation, Appropriate for age. Cardiovascular: No deficits noted. Heart tones. Respiratory: No deficits noted. Airway is patent Respiratory effort is even, unlabored, Respiratory pattern is regular, symmetrical. GI: No deficits noted. Abdomen is round Bowel sounds present X 4 quads. : No signs and/or symptoms were reported regarding the genitourinary system. Derm: No deficits noted. Musculoskeletal: No deficits noted. Vital Signs: 02:21 BP 122 / 89; Pulse 86; Resp 18 S; Temp 98(O); Pulse Ox 95% on R/A; Weight 122.47 kg as6 (R); Height 5 ft. 10 in. (R); Pain 0/10; 03:35 BP 130 / 83; Pulse 70; Resp 20; Pulse Ox 98% ; la4 06:09 BP 138 / 83; Pulse 74; Pulse Ox 94% ; la4 02:21 Body Mass Index 38.74 (122.47 kg, 177.8 cm) as6 02:21 Pain Scale: Adult as6 [place] Coma Score: 03:35 Eye Response: spontaneous(4). Motor Response: obeys commands(6). Verbal Response: la4 oriented(5). Total: 15. 06:09 Eye Response: spontaneous(4). Motor Response: obeys commands(6). Verbal Response: la4 oriented(5). Total: 15. ED Course: 02:07 Patient arrived in ED. gm2 02:24 Triage completed. as6 02:25 Arm band placed on. as6 02:35 Noe Alex MD is Attending Physician. sp4 03:18 Mary De La O RN is Primary Nurse. la4 03:35 No apparent distress. Awaiting lab results. la4 03:35 Patient has correct armband on for positive identification. Bed in low position. Call la4 light in reach. Side rails up X2. Provided Education on: plan of care and medications. 03:35 No provider procedures requiring assistance completed. Patient did not have IV access la4 during this emergency room visit. 03:38 Influenza Screen (a \T\ B) Sent. la4 05:29 Amos Hernandez DO is Referral Physician. sp4 Administered Medications: 03:38 Drug: Albuterol Inhalation 2.5 mg Inhalation once Route: Inhalation; la4 03:38 Drug: Ipratropium Inhalation Aerosol 0.5 mg Inhalation once Route: Inhalation; la4 03:38 Drug: predniSONE PO 60 mg PO once Route: PO; la4 03:38 Drug: Dextromethorphan-Guaifenesin PO Liquid 10 mg-100 mg/5 mL 10 ml PO once Route: PO; la4 03:38 Drug: Ibuprofen PO 800 mg PO once Route: PO; la4 04:28 Drug: diphenhydrAMINE PO 25 mg PO once Route: PO; nw1 04:49 Not Given (medication not availablee): [id number] mg PO once la4 Medication: 03:35 VIS not applicable for this client. la4 Outcome: 05:30 Discharge ordered by . sp4 06:10 Patient left the ED. la4 Signatures: Filiberto Tan RN RN as6 Noe Alex MD MD sp4 Dinorah Miranda gm2 Mary De La O RN RN la4 Marjorie Lara RN RN nw1 Corrections: (The following items were deleted from the chart) 03:49 03:38 SARS-COV-2 Antigen Rapid+I.LAB.BRZ drawn and sent. la4 EDMS
[2023-11-18 07:25] VITALS: BP 138/83; TEMP 98; O2SAT 94
== END ==
LOC: ER 02:02
DX: J00 Acute nasopharyngitis [common cold] (principal); J06.9 Acute upper respiratory infection, unspecified; R05.9 Cough, unspecified; Z11.52 Encounter for screening for COVID-19
CPT/HCPCS: 82947; 87635; 87804; 99284; J7512; J7613; J7644